=== PATIENT | female | born 1950 | race Caucasian/White ===

== ENCOUNTER 2020-05-04 13:23 | Outpatient (CLI) | payer MEDICARE, OTHER, SELFPAY ==
[2020-05-04 14:09] LABS: Amphetamine Screen Urine Negative (Negative); Barbiturate Screen Urine Negative (Negative); Benzodiazepines Screen Urine Negative (Negative); Cannabinoid Screen Urine Negative (Negative); Cocaine Screen Urine Negative (Negative); Methadone Screen Urine Negative (Negative); Opiate Screen Urine Negative (Negative); Phencyclidine Screen Urine Negative (Negative)
== END 2020-05-04 13:24 | disposition home or self-care (01) ==
PROVIDERS: PCP Internal Medicine; Visit Provider Clinical Nurse Specialist
DX: Z79.891 Long term (current) use of opiate analgesic (principal)
CPT/HCPCS: 80307

== ENCOUNTER 2020-08-04 10:07 | Outpatient (CLI) | payer MEDICARE, OTHER, SELFPAY ==
[2020-08-04 10:45] LABS: Basophils Absolute Auto 0.1 K/mm3 (0.0-0.1); Basophils Percent Auto 0.8 % (0.2-1.2); Eosinophils Percent Auto 0.6 % (0-4.4); Hemoglobin 13.2 g/dL (12.0-15.0); Immature Granulocyte Absolute 0.01 K/mm3 (0.00-0.031); Immature Granulocyte Percent A 0.2 % (0-0.5); Lymphocytes Absolute Auto 1.44 K/mm3 (0.9-3.2); Lymphocytes Percent Auto 23.2 % (18.3-44.2); Mean Corpuscular Hemoglobin 32.2 pg (26-34); Mean Corpuscular Volume 97.6 fl (80-100); Mean Platelet Volume 8.9 fl (7.4-10.4); Monocytes Absolute Auto 0.5 K/mm3 (0.1-0.6); Monocytes Percent Auto 8.7 % (2.6-8.5); Neutrophils Absolute Auto 4.1 K/mm3 (1.3-6.7); Neutrophils Percent Auto 66.5 % (45.5-73.1); Platelet Count Result 217 k/mm3 (150-375); Red Cell Distribution Width 12.8 % (11.5-14.5); White Blood Count 6.2 K/mm3 (4.5-10.0)
[2020-08-04 11:03] LABS: Alanine Aminotransferase 12 U/L (4-35); Albumin Level 3.6 g/dL (3.5-5.1); Alkaline Phosphatase 74 U/L (38-126); Anion Gap 5 mmol/L (8-16); Aspartate Amino Transferase 28 U/L (14-36); Bilirubin,Total 0.6 mg/dL (0.2-1.3); Blood Urea Nitrogen 13 mg/dL (7-17); Calcium 8.7 mg/dL (8.4-10.2); Carbon Dioxide 27 mmol/L (22-30); Chloride 106 mmol/L (98-107); Cholesterol 178 mg/dL (0-200); Estimated Glomerular Filt Rate > 60; Glucose 88 mg/dL (65-105); HDL Direct 59 mg/dL; Potassium 4.1 mmol/L (3.4-5.0); Sodium 138 mmol/L (137-145); Triglycerides 96 mg/dL (<150)
[2020-08-04 11:15] LABS: LDL Cholesterol Direct 97 mg/dL
[2020-08-04 11:47] LABS: Vitamin D 25 Hydroxy 30.1 ng/mL
== END 2020-08-04 10:08 | disposition home or self-care (01) ==
LOC: ANHLAB 10:09
PROVIDERS: PCP Internal Medicine; Visit Provider Clinical Nurse Specialist
DX: Z13.228 Encounter for screening for other metabolic disorders (principal); E55.9 Vitamin D deficiency, unspecified; E05.90 Thyrotoxicosis, unspecified without thyrotoxic crisis or storm
CPT/HCPCS: 36415; 80053; 80061; 82306; 85025

== ENCOUNTER → 2020-10-06 14:25 | Outpatient (CLI) | payer MEDICARE, OTHER, SELFPAY ==
--- NOTE | ~2020-10-06 | MM_ITS ---
EXAMINATION: MM screening jihan BI w melinda HISTORY: Screening mammogram TECHNIQUE: Craniocaudal and mediolateral oblique 3-D tomosynthesis images were obtained and synthetic 2-D images were generated. CAD analysis was submitted and interpreted. COMPARISON: 09/07/2019, 08/03/2018, 07/31/2017 bilateral digital screening mammogram examinations BREAST PARENCHYMAL COMPOSITION: There are scattered areas of fibroglandular density. FINDINGS: There is no evidence of suspicious mass, calcification, or architectural distortion to sugg est malignancy in either breast. There has been no suspicious interval change. IMPRESSION: 1. No mammographic evidence of malignancy. 2. Recommend routine screening mammography in one year. BI-RADS Category 1: Negative Reviewed, dictated and finalized at location A. E HAND
== END ==
PROVIDERS: Visit Provider Obstetrics & Gynecology
DX: Z12.31 Encounter for screening mammogram for malignant neoplasm of breast (principal)
CPT/HCPCS: 77063; 77067

== ENCOUNTER → 2020-10-06 14:30 | Outpatient (CLI) | payer MEDICARE, OTHER, SELFPAY ==
--- NOTE | ~2020-10-06 | DEXA_ITS ---
Bone Density Report Name: Mercedes Mosley Age: 69 Sex: Female Ethnicity: White Date of : 1950 Indication: postmenopausal; screening for osteoporosis; hysterectomy; Referring Provider: Isabelle Jones Study: Bone densitometry was performed. Exam Date: October 06, 2020 Accession number: [id number] Bone Density: Region BMD T-score Z-score Classification AP Spine (L1-L4) 0.787 -2.4 -0.4 Osteopenia Femoral Neck (Left) 0.619 -2.1 -0.4 Osteopenia Total Hip (Left) 0.744 -1.6 -0.2 Osteopenia Femoral Neck (Right) 0.552 -2.7 -1.0 Osteoporosis Total Hip (Right) 0.672 -2.2 -0.8 Osteopenia Total Hip Mean 0.708 -1.9 -0.5 Osteopenia World Health Organization criteria for BMD impression classify patients as: Normal (T-score at or above -1.0), Osteopenia (T-score between -1.0 and -2.5), or Osteoporosis (T-score at or below -2.5). 10-year Fracture Risk: FRAX not reported because: Some T-score for Spine Total or Hip Total or Femoral Neck at or below -2.5 Clinical Information Provided by Patient: Has used the following medications: Vitamin D Has the following medical conditions: Hysterectomy Patient maximum height was 64 Menopause Age: 51 No regular weight bearing exercise Drinks caffeinated beverages Onset of menses at age 16 Number of children 3 Impression: The patient has osteoporosis, based on the Right Femoral Neck T-score. Discussion: INCREASED RISK OF FRACTURE. BONE DENSITY IS UNDESIRABLY LOW AT ONE OR MORE SKELETAL SITES, CONSISTENT WITH POSTMENOPAUSAL OSTEOPOROSIS. This patient's lowest T-score meets the World Health Organization's (WHO) criteria for osteoporosis at one or more sites (T-score -2.5 or below). In untreated patients, the risk of osteoporotic fracture increases approximately two-fold for each 1.0 SD decrease in T-score. Low bone density is not the only risk factor for fracture; also consider factors such as patient's age, frailty or poor health, risk of falling, risk of injury, previous osteoporotic fracture, family history of osteoporosis, cigarette smoking, low body weight, etc. Not everyone with low bone mineral density has osteoporosis; osteomalacia and other metabolic bone disorders should also be considered. Patients who have osteoporosis should be evaluated for specific diseases and conditions (secondary causes) that may cause or contribute to bone loss. The [place] [employer]ocrinologists (AACE) and National Osteoporosis Foundation (NOF) recommend pharmacologic intervention for all postmenopausal women whose T-score is in this range. The patient should follow a healthful lifestyle (good nutrition with adequate calcium and vitamin D, and appropriate weight-bearing exercise). Follow-Up: Consider a repeat BMD and Vertebral Fracture Assessment (VFA) exam in 2 years or soon
== END ==
PROVIDERS: PCP Internal Medicine; Visit Provider Clinical Nurse Specialist
DX: Z78.0 Asymptomatic menopausal state (principal); M81.0 Age-related osteoporosis without current pathological fracture; M85.88 Other specified disorders of bone density and structure, other site; M85.852 Other specified disorders of bone density and structure, left thigh; M85.851 Other specified disorders of bone density and structure, right thigh
CPT/HCPCS: 77080

== ENCOUNTER → 2021-02-05 09:23 | Outpatient (CLI) | payer MEDICARE, OTHER, SELFPAY ==
--- NOTE | ~2021-02-05 | XR_ITS ---
EXAMINATION: XR chest 2V 02/05/2021 09:49 INDICATION: Cough PROCEDURE: Two-view chest COMPARISON: 12/20/2011 FINDINGS: The lungs are clear. The cardiomediastinal silhouette is within normal limits. There are no pleural effusions. There is no pneumothorax suspected. IMPRESSION: 1: NO ACUTE CARDIOPULMONARY DISEASE. Reviewed, dictated and finalized at location A.
== END ==
PROVIDERS: PCP Clinical Nurse Specialist; Visit Provider Clinical Nurse Specialist
DX: R05 Cough (principal)
CPT/HCPCS: 71046

== ENCOUNTER 2021-06-17 06:28 | Emergency (ER) | payer MEDICARE, OTHER, SELFPAY ==
--- NOTE | ~2021-06-17 | US_ITS ---
EXAMINATION: US venous doppler UE RT DATE: 06/17/2021 07:37 INDICATION: Right arm pain TECHNIQUE: Grayscale ultrasound images without and with compression and Doppler ultrasound images of the right upper extremity veins were obtained. COMPARISON: None. FINDINGS: The right internal jugular vein, subclavian vein, axillary vein, brachial veins, basilic vein, cephal ic vein, radial vein, and ulnar vein are patent. There is focal area of decreased echogenicity in the area of clinical concern which appears to involve one of the forearm muscles. No definite focal mass is identified. IMPRESSION: 1. No evidence of deep venous thrombosis. 2. Increased echogenicity appearing to involve a muscle of the forearm without definite mass or absce ss identified. Correlate for history of trauma. Consider follow-up with nonemergent CT or MRI with co ntrast. Reviewed, dictated and finalized at location A. IMPRESSION: 1. No evidence of deep venous thrombosis. 2. Increased echogenicity appearing to involve a muscle of the forearm without definite mass or abscess identified. Correlate for history of trauma. Consider follow-up with nonemergent CT or MRI with contrast.
--- NOTE | ~2021-06-17 | XR_ITS ---
EXAMINATION: XR forearm RT 2V INDICATION: Right forearm swelling and pain TECHNIQUE: Two views of the right forearm are obtained. COMPARISON: None available FINDINGS: There is dorsal soft tissue swelling of the mid forearm. There is no fracture, dislocation, or subluxation. Bone alignment at the wrist and elbow is normal. IMPRESSION: 1. Dorsal soft tissue swelling of the mid forearm. Reviewed, dictated and finalized at location A.
[2021-06-17 06:31] VITALS: BP 144/82; PULSE 78; RESP 20; TEMP 36.7; O2SAT 98
--- NOTE | 2021-06-17 06:39 | PC.NURSE ---
pt c/o Right forearm pain with US scheduled in 2 days. reports pain began without known injury approx. 1.5 weeks ago. no redness. no warmth. non-pitting, loose edema noted to right forearm. pt reports it started as a small area but swelling has spread since onset. +2 Right radial pulse without deformity. Full ROM. no s/s of distress. a/o x 4. Last took ibuprofen 800 mg yesterday at 2100.
--- NOTE | 2021-06-17 07:19 | PC.NURSE ---
Pt went to ultrasound and xray of right forearm
--- NOTE | 2021-06-17 07:28 | ED.EXTPRO ---
HPI - Extremity Problem General Chief complaint: Extremity Problem,Nontraumatic Stated complaint: Right arm lump Time Seen by Provider: 06/17/21 06:59 Source: patient and RN notes reviewed Mode of arrival: ambulatory Limitations: no limitations History of Present Illness HPI Narrative: This is a 70 year old female who presents for evaluation of right forearm swelling . This swelling has been present for 2 weeks. She has intermittent worsening pain. She reports pain makes difficulty to move hands but no numbness or tingling. She denies fever, chills. She states the lump to her right forearm feels warm. Last night she took ibuprofen for her pain and she denies need for pain medication now. She denies trauma to arm. She has been scheduled for an ultrasound of her arm on Friday but she did not want to wait for her appointment. Related Data Allergies Allergy/AdvReac Type Severity Reaction Status Date / Time No Known Allergies Allergy Verified 06/17/21 06:36 Review of Systems Review of Systems: All systems reviewed & are unremarkable except as noted in HPI and below PMFSH Past Medical History Medical History Insomnia Neck pain Palpitations Short heel cord 1989 Tonsillectomy planned 1978 Vitamin deficiency Surgical History Surgical History H/O arthroscopy of right knee 2013 H/O right knee surgery 1999 H/O: hysterectomy 2001 History of appendectomy 2006 Family History Family History Father Family history of lung cancer Mother Hypertension Social History Social History (Updated 06/11/21 @ 14:39 by Esha Chavez) Social History: caffeine-coffee/soda 1 daily Smoking status: Never smoker Alcohol intake: current Drinks per week: 1 Alcohol use details: occasionally Substance use: never Exam Const: General: no acute distress and alert Orientation/consciousness: patient oriented x3 Eyes: EOM: EOMs intact bilaterally Resp: Effort & Inspection: normal respiratory effort Skin: General skin exam: normal color Rashes: no rashes Other: no erythema, Neuro: General: patient oriented x3, moves all extremities and CN's II-XI intact bilaterally Extrem: Other: right dorsal proximal forearm with soft swelling, no erythema, mild tenderness, strong radial pulse, Psych: Mental Status: mental status grossly normal Affect: normal affect Course Reevaluation(s) Reevaluation #1: Patient has no fever, no wbc, This does not appear to be abscess. Arm is soft. No sign of compartment syndrome. I discussed discharge plan to follow up with PCP for outpatient MRI of her arm. Date: 06/17/21 Time: 08:32 Consultations Consultation #1: I spoke with DR. rivera about US and xray. No fever and leukocytosis. He agrees MRI would be best study for evaluation and his office will get that ordered tomorrow. Date: 06/17/21 Time: 08:31 Vital Signs Vital signs: Vital Signs Temperature 98.1 F 06/17/21 06:31 Pulse Rate 78 06/17/21 06:31 Respiratory Rate 20 06/17/21 06:31 Blood Pressure 144/82 H 06/17/21 06:31 Pulse Oximetry 98 06/17/21 06:31 Temperature 98.9 F 06/17/21 07:37 Pulse Rate 70 06/17/21 08:46 Respiratory Rate 18 06/17/21 08:46 Blood Pressure 142/76 H 06/17/21 08:46 Pulse Oximetry 100 06/17/21 08:46 MDM - Extremity (Nontraumatic) Lab Data Attestation: I reviewed the patient's lab results. Result diagrams: 06/17/21 07:54 06/17/21 07:54 Labs: Lab Results 06/17/21 06/17/21 Range/Units 07:54 07:54 WBC 7.8 (4.5-10.0) K/mm3 RBC 4.02 L (4.2-5.4) M/mm3 Hgb 12.8 (12.0-15.0) g/dL Hct 38.6 (37.0-47.0) % MCV 96.0 (80-100) fl MCH 31.8 (26-34) pg MCHC 33.2 (32-36) g/dl RDW 13.0 (11.5-14.5) % Plt Count 192 (150-3
[2021-06-17 07:37] VITALS: BP 138/80; PULSE 73; RESP 16; TEMP 37.2; O2SAT 100
--- NOTE | 2021-06-17 07:41 | PC.NURSE ---
Pt A&Ox4, pt has full range of motion, forearm swollen, pt states pain when she moves it, skin warm,dry, intact
[2021-06-17 08:20] LABS: Basophils Absolute Auto 0.1 K/mm3 (0.0-0.1); Basophils Percent Auto 0.6 % (0.2-1.2); Eosinophils Absolute Auto 0.1 K/mm3 (0-0.3); Hematocrit 38.6 % (37.0-47.0); Hemoglobin 12.8 g/dL (12.0-15.0); Immature Granulocyte Absolute 0.02 K/mm3 (0.00-0.031); Immature Granulocyte Percent A 0.3 % (0-0.5); Lymphocytes Absolute Auto 0.96 K/mm3 (0.9-3.2); Lymphocytes Percent Auto 12.4 % (18.3-44.2); Mean Corpuscular HGB Conc 33.2 g/dl (32-36); Mean Corpuscular Hemoglobin 31.8 pg (26-34); Mean Platelet Volume 8.7 fl (7.4-10.4); Monocytes Absolute Auto 0.9 K/mm3 (0.1-0.6); Neutrophils Absolute Auto 5.8 K/mm3 (1.3-6.7); Neutrophils Percent Auto 74.7 % (45.5-73.1); Platelet Count Result 192 k/mm3 (150-375); Red Blood Count 4.02 M/mm3 (4.2-5.4); White Blood Count 7.8 K/mm3 (4.5-10.0)
[2021-06-17 08:36] LABS: Alanine Aminotransferase 16 U/L (4-35); Albumin Level 3.4 g/dL (3.5-5.1); Alkaline Phosphatase 77 U/L (38-126); Anion Gap 5 mmol/L (8-16); Aspartate Amino Transferase 33 U/L (14-36); Bilirubin,Total 0.3 mg/dL (0.2-1.3); Blood Urea Nitrogen 20 mg/dL (7-17); Calcium 8.5 mg/dL (8.4-10.2); Carbon Dioxide 28 mmol/L (22-30); Chloride 108 mmol/L (98-107); Estimated CRCL calculation 57 ml/min; Estimated Glomerular Filt Rate > 60; Glucose 98 mg/dL (65-110); Sodium 141 mmol/L (137-145)
[2021-06-17 08:46] VITALS: BP 142/76; PULSE 70; RESP 18; O2SAT 100
[2021-06-17 08:49] LABS: CRP 1.2 mg/dL (<1.0)
[2021-06-17] MEDS: MORPHINE SULFATE (*CRX) 2 MG/ML INJ (08:50)
== END 2021-06-17 08:48 | disposition home or self-care (01) ==
PROVIDERS: Emergency Provider General Practice; PCP Internal Medicine
DX: M79.89 Other specified soft tissue disorders (principal); E56.9 Vitamin deficiency, unspecified
CPT/HCPCS: 36415; 73090; 80053; 85025; 86140; 93971; 96374; 99284; J2270

== ENCOUNTER 2021-07-30 00:57 | Day surgery (SDC) | payer MEDICARE, OTHER, SELFPAY ==
[2021-07-11 14:14] VITALS: BMI 22.3
[2021-07-30 09:59] VITALS: BP 93/74; PULSE 96; RESP 16; TEMP 36.1; O2SAT 100; BMI 21.1
[2021-07-30] MEDS: LACTATED RINGERS 1,000 ML 150 ML IV CONT (10:08)
--- NOTE | 2021-07-30 10:09 | WPDANESEPPF ---
Anes - Initial Pre Proc Eval Procedure: Operation Date: 07/30/21 10:30 Proposed Procedures p Screening Colonoscopy - Dragan Li MD Date/Time: 07/30/21 10:09 Surgeon: Dragan Li MD Pre Op Diagnosis: hx of colon polyps Patient Data Age: 70 Gender: F Height: 1.63 m Weight: 55.9 kg Last Vital Signs Temp 97.0 F L 07/30/21 09:59 Pulse 96 07/30/21 09:59 Resp 16 07/30/21 09:59 BP 93/74 L 07/30/21 09:59 Pulse Ox 100 07/30/21 09:59 Allergies Allergy/AdvReac Type Severity Reaction Status Date / Time No Known Allergies Allergy Verified 07/30/21 09:58 Home Medications Medication Instructions Recorded Confirmed Type alendronate 70 mg tablet 70 mg PO WEEKLY #12 tablet 01/23/21 07/30/21 Rx zolpidem 10 mg tablet 10 mg PO .HS PRN #30 tablet 06/04/21 07/30/21 Rx ibuprofen 600 mg PO TID PRN #14 tablet 06/17/21 07/30/21 Rx Patient hx anesthesia problems: none Family hx anesthesia problems: none Results Review: All pre-operative results and documents have been reviewed as part of the pre-operative evaluation. [facility] Past Medical History Medical History Insomnia Neck pain Palpitations Short heel cord 1989 Tonsillectomy planned 1978 Vitamin deficiency Surgical History Surgical History H/O arthroscopy of right knee 2013 H/O right knee surgery 1999 H/O: hysterectomy 2001 History of appendectomy 2006 Family History Family History Father Family history of lung cancer Mother Hypertension Social History Social History (Updated 06/11/21 @ 14:39 by Esha Chavez) Social History: caffeine-coffee/soda 1 daily Smoking status: Never smoker Alcohol intake: current Drinks per week: 2 Alcohol use details: occasionally Substance use: never Substance use type: does not use Living arrangements: with family Spiritual care concerns: No Anes - Eval Final PreProcedure Day of Procedure 07/30/21 10:09 Patient weight: normal Heart: regular rate and rhythm Lungs: clear to auscultation Airway: Mallampati scale class II Neurological: alert and oriented Last oral intake: >/= 8 hours ASA classification: II Emergent: no Anesthetic plan: proceed Anesthesia type and monitoring: general GIVS and standard monitoring Results Review: All pre-operative results and documents have been reviewed as part of the pre-operative evaluation. Informed Consent: The patient's anesthetic plan and its attendant risks and benefits were discussed with the patient/family/POA. Questions were solicited and answers provided to the satisfaction of the patient/family/POA.
--- NOTE | 2021-07-30 10:16 | WPDGICN ---
Assessment and Plan Assessment and plan (1) History of colon polyps: Code(s): Z86.010 - Personal history of colonic polyps Status: Acute Assessment and Plan: Patient has a prior history of colon polyps for this reason surveillance colonoscopy advised this time. Follow-up may need to be considered at 5 year intervals in the future. GI Consult Note Consult date/time: 07/30/21 10:16 HPI: Mercedes Mosley is a 70 year old female Presents for screening colonoscopy. Patient has a prior history of colon polyps. Most recent colonoscopy in [address] Brown. Patient reports that her current weight appetite bowel movements are normal. She denies abdominal pain. She has at no bleeding. Family history noncontributory. Review of Systems Review of Systems: All systems reviewed & are unremarkable except as noted in HPI and below PMFSH Past Medical History Medical History Insomnia Neck pain Palpitations Short heel cord 1989 Tonsillectomy planned 1978 Vitamin deficiency Surgical History Surgical History H/O arthroscopy of right knee 2013 H/O right knee surgery 1999 H/O: hysterectomy 2002 History of appendectomy 2006 Family History Family History Father Family history of lung cancer Mother Hypertension Social History Social History (Updated 06/11/21 @ 14:39 by Esha Chavez) Social History: caffeine-coffee/soda 1 daily Smoking status: Never smoker Alcohol intake: current Drinks per week: 2 Alcohol use details: occasionally Substance use: never Substance use type: does not use Living arrangements: with family Spiritual care concerns: No Meds Home Medications and Allergies Home Medications Medication Instructions Recorded Confirmed Type alendronate 70 mg tablet 70 mg PO WEEKLY #12 tablet 01/23/21 07/30/21 Rx zolpidem 10 mg tablet 10 mg PO .HS PRN #30 tablet 06/04/21 07/30/21 Rx ibuprofen 600 mg PO TID PRN #14 tablet 06/17/21 07/30/21 Rx Allergies Allergy/AdvReac Type Severity Reaction Status Date / Time No Known Allergies Allergy Verified 07/30/21 09:58 Vital Signs Vital Signs - 24 hr 07/30/21 09:59 Temperature 97.0 F L Pulse Rate 96 Respiratory Rate 16 Blood Pressure 93/74 L Pulse Oximetry 100 Exam Narrative: Physical exam reveals patient to be alert. Vital signs stable. HEENT exam unremarkable. Patient is anicteric. Lungs are clear to auscultation and percussion. Heart is without murmur or extra sounds. Abdominal exam bowel sounds present soft nontender with no organomegaly. Digital external rectal exam is normal.
[2021-07-30 10:49] VITALS: BP 99/69; PULSE 79; RESP 25; O2SAT 100
[2021-07-30 10:59] VITALS: BP 121/73; PULSE 69; RESP 22; O2SAT 100
[2021-07-30 11:20] VITALS: BP 134/72; PULSE 64; RESP 12; O2SAT 100
== END 2021-07-30 11:37 | disposition home or self-care (01) ==
PROVIDERS: PCP Internal Medicine; Visit Provider Internal Medicine Gastroenterology
PROC: 0DJD8ZZ Inspection of Lower Intestinal Tract, Via Natural or Artificial Opening Endoscopic (ICD-10-PCS; CPT 45378; principal; 2021-07-30 10:30)
DX: Z12.11 Encounter for screening for malignant neoplasm of colon (principal); K57.30 Diverticulosis of large intestine without perforation or abscess without bleeding; Z86.010 Personal history of colon polyps
CPT/HCPCS: G0105; J2704; J7120

== ENCOUNTER → 2021-12-31 08:42 | Outpatient (CLI) | payer MEDICARE, OTHER, SELFPAY ==
[2021-12-31 13:08] LABS: SARS-CoV-2 RNA PCR Negative
== END ==
PROVIDERS: PCP Internal Medicine; Visit Provider Clinical Nurse Specialist
DX: J32.9 Chronic sinusitis, unspecified (principal); Z20.822 Contact with and (suspected) exposure to COVID-19
CPT/HCPCS: C9803; U0003; U0005

== ENCOUNTER → 2022-01-04 13:44 | Outpatient (CLI) | payer MEDICARE, OTHER, SELFPAY ==
--- NOTE | ~2022-01-04 | MM_ITS ---
EXAMINATION: MM screening jihan BI w melinda HISTORY: Screening TECHNIQUE: Craniocaudal and mediolateral oblique 3-D tomosynthesis images were obtained and synthetic 2-D images were generated. CAD analysis was submitted and interpreted. COMPARISON: Comparison to multiple prior studies sequentially, with oldest reviewed study dated 03/2015. BREAST PARENCHYMAL COMPOSITION: Breast composed of scattered areas of fibroglandular density FINDINGS: There is a subareolar mass in the right breast which is partially obscured by fibroglandula r tissue. There are no suspicious masses, calcifications or architectural distortion in the left [address] to suggest malignancy. IMPRESSION: 1. Subareolar mass of the right breast. 2. Additional mammographic views and possible breast ultrasound are recommended. BI-RADS Category 0: Incomplete: Needs additional imaging evaluation. Reviewed, dictated and finalized at location A. IMPRESSION: 1. Subareolar mass of the right breast. 2. Additional mammographic views and possible breast ultrasound are recommended . BI-RADS Category 0: Incomplete: Needs additional imaging evaluation.
== END ==
PROVIDERS: PCP Obstetrics & Gynecology; Visit Provider Obstetrics & Gynecology
DX: Z12.31 Encounter for screening mammogram for malignant neoplasm of breast (principal); R92.8 Other abnormal and inconclusive findings on diagnostic imaging of breast
CPT/HCPCS: 77063; 77067

== ENCOUNTER → 2022-02-11 08:49 | Outpatient (CLI) | payer MEDICARE, OTHER, SELFPAY ==
--- NOTE | ~2022-02-11 | MMUS_ITS ---
EXAMINATION: MM diagnostic jihan RT w melinda, US breast RT limited HISTORY: Subareolar mass of right breast reported on 01/04/2022 screening mammogram TECHNIQUE: Additional 3-D tomosynthesis images of the right breast were performed and synthetic 2-D i mages were generated. CAD analysis was submitted and interpreted. High resolution subareolar right br east ultrasound was performed. COMPARISON: 01/04/2022 bilateral screening mammogram FINDINGS: MAMMOGRAPHIC FINDINGS: No suspicious mass or architectural distortion, malignant calcification, skin thickening or retractio n is evident. ULTRASOUND: No suspicious mass, shadowing or other significant sonographic abnormality is detected in the subareo lar area of the right breast IMPRESSION: 1. No mammographic evidence of malignancy 2. Routine annual mammographic screening is recommended BI-RADS Category 1: Negative Reviewed, dictated and finalized at location A. IMPRESSION: 1. No mammographic evidence of malignancy 2. Routine annual mammographic screening is recommended BI-RADS Category 1: Negative
== END ==
PROVIDERS: PCP Family Medicine; Visit Provider Obstetrics & Gynecology
DX: R92.8 Other abnormal and inconclusive findings on diagnostic imaging of breast (principal)
CPT/HCPCS: 76642; 77061; 77065; G0279

== ENCOUNTER → 2023-01-10 07:15 | Outpatient (CLI) | payer MEDICARE, OTHER, SELFPAY ==
--- NOTE | ~2023-01-10 | MM_ITS ---
EXAMINATION: MM screening jihan BI w melinda HISTORY: Screening mammogram TECHNIQUE: Craniocaudal and mediolateral oblique 3-D tomosynthesis images were obtained and synthetic 2-D images were generated. CAD analysis was submitted and interpreted. COMPARISON: 01/04/2022, 10/06/2020, 09/07/2019 BREAST PARENCHYMAL COMPOSITION:There are scattered areas of fibroglandular density. FINDINGS: No suspicious mass, calcification, or architectural distortion are identified in either matthew ast to suggest malignancy. There has been no suspicious interval change. IMPRESSION: No mammographic evidence of malignancy. Recommend routine screening mammography in one year. BI-RADS Category 1: Negative Reviewed, dictated and finalized at location .
== END ==
PROVIDERS: PCP Family Medicine; Visit Provider Obstetrics & Gynecology
DX: Z12.31 Encounter for screening mammogram for malignant neoplasm of breast (principal)
CPT/HCPCS: 77063; 77067

== ENCOUNTER 2023-07-11 08:21 | Emergency (ER) | payer MEDICARE, OTHER, SELFPAY ==
--- NOTE | ~2023-07-11 | XR_ITS ---
[id number] DATE: 07/11/2023 08:57 INDICATION: Injury 3 days ago, left rib pain. TECHNIQUE: PA chest. 3 views of the left ribs. COMPARISON: None FINDINGS: Mild old healed posterolateral left sixth rib fracture deformity. No recent left rib fractu re is detected. Normal heart size. No hilar or mediastinal enlargement. There is a new focal density overlying the outer mid to upper right lung, right upper lobe. Right upp er lobe mass is not excluded. CT thorax is recommended. The lungs otherwise are clear of infiltrate or consolidation. No pleural effusion or pulmonary vascul ar congestion or pneumothorax. Mild upper thoracic dextroscoliosis and lower thoracic levoscoliosis and lumbar dextroscoliosis. IMPRESSION: Old healed posterolateral left sixth rib fracture No recent left rib fracture is detected Ill-defined asymmetric density in the lateral mid to upper right lung field; CT thorax is recommended to evaluate for possible lung mass. Reviewed, dictated and finalized at Location A. Reviewed, dictated and finalized at location B. [employer]
[2023-07-11 08:35] VITALS: BP 134/92; PULSE 83; RESP 16; TEMP 36.4; O2SAT 100
--- NOTE | 2023-07-11 09:35 | ED.BACK ---
HPI - Back Pain/Injury General Chief Complaint: Back Pain/Injury Stated Complaint: Rib pain Time Seen by Provider: 07/11/23 08:41 Source: patient and RN notes reviewed Mode of arrival: ambulatory Limitations: no limitations History of Present Illness HPI Narrative: Patient presents today complaining of 3 day history of left lateral rib pain. Patient bent over a box the [employer] and felt sharp pain in her ribs. She currently rates her pain 0/10 at rest, which increases to 10/10 with movement or deep breath. She has been taking naproxen without relief. Related Data Home Medications Medication Instructions Recorded Confirmed alendronate 70 mg tablet 70 mg PO DAILY 07/11/23 07/11/23 zolpidem 10 mg tablet 10 mg PO HS 07/11/23 07/11/23 Allergies Allergy/AdvReac Type Severity Reaction Status Date / Time No Known Allergies Allergy Verified 07/11/23 08:31 Review of Systems Review of Systems: CONSTITUTIONAL: Denies body aches, fever, chills, or sweats. EYES: Denies visual changes, redness, or discharge. ENT: Denies rhinorrhea, congestion, sore throat, or otalgia. CARDIOVASCULAR: Denies chest pain, palpitations, or edema. RESPIRATORY: Denies cough or dyspnea. GASTROINTESTINAL: Denies abdominal pain, nausea, vomiting, or diarrhea. GENITOURINARY: Denies dysuria or hematuria. SKIN: Denies rash, itching, or wounds. MUSCULOSKELETAL: + left rib pain NEUROLOGIC: Denies headache, numbness, tingling, or weakness. PSYCH: Denies depression or anxiety. [facility] Past Medical History Medical History Insomnia Neck pain Palpitations Short heel cord 1989 Tonsillectomy planned 1978 Vitamin deficiency Surgical History Surgical History H/O arthroscopy of right knee 2013 H/O right knee surgery 1999 H/O: hysterectomy 2001 History of appendectomy 2006 Family History Family History Father Family history of lung cancer Mother Hypertension Social History Social History Social History: caffeine-coffee/soda 1 daily Smoking status: Never smoker Alcohol intake: current Drinks per week: 2 Alcohol use details: occasionally Substance use: never Substance use type: does not use Living arrangements: with family Spiritual care concerns: No Comments At time of signature, I have reviewed and agree with nursing past medical, surgical, social and family history unless otherwise noted. Please see nursing chart for further information. There is no relevant family history pertinent to the presenting complaint Exam Narrative: GENERAL: Well-appearing, well-nourished, and in no acute distress. HEAD: Normocephalic, atraumatic. EYES: EOMI. No redness or drainage. Conjunctivae normal. ENT: Mucous membranes pink and moist. NECK: Normal AROM. CHEST: No respiratory distress. Clear to auscultation. Tenderness to the left lower lateral ribs. No crepitus, ecchymosis, or edema noted. HEART: Regular rate and rhythm. No murmur appreciated. Normal peripheral pulses. ABDOMEN: Soft, nontender, nondistended, normal active bowel sounds. EXTREMITIES: Normal range of motion. No edema. SKIN: Warm, dry, no rash. Capillary refill normal. Normal skin turgor. NEURO: No focal deficits. Alert and oriented x3. Gait steady. PSYCH: Normal affect. No signs of depression or anxiety. Course Course Level of Care: Express Care Visit Vital Signs Vital signs: Vital Signs Temperature 97.6 F 07/11/23 08:35 Pulse Rate 83 07/11/23 08:35 Respiratory Rate 16 07/11/23 08:35 Blood Pressure 134/92 H 07/11/23 08:35 Pulse Oximetry 100 07/11/23 08:35 Temperature 97.6 F 07/11/23 08:35 Pulse Rate 83 07/11/23 08:35 Respiratory Rate 16 07/11/23 08:35 Blood Pressu
== END 2023-07-11 09:57 | disposition home or self-care (01) ==
PROVIDERS: Emergency Provider Nurse Practitioner; PCP Family Medicine
DX: S20.212A Contusion of left front wall of thorax, initial encounter (principal); X50.0XXA Overexertion from strenuous movement or load, initial encounter
CPT/HCPCS: 71101; 99213; G0463

== ENCOUNTER 2024-02-18 10:30 | Outpatient (CLI) | payer MEDICARE, OTHER, SELFPAY ==
--- NOTE | ~2024-02-18 | MM_ITS ---
EXAMINATION: MM screening jihan BI w melinda HISTORY: Screening mammogram TECHNIQUE: Craniocaudal and mediolateral oblique 3-D tomosynthesis images were obtained and synthetic 2-D images were generated. CAD analysis was submitted and interpreted. COMPARISON: 01/10/2023, 01/04/2022 BREAST PARENCHYMAL COMPOSITION:Not Dense. There are scattered areas of fibroglandular density. FINDINGS: No suspicious mass, calcification, or architectural distortion are identified in either matthew ast to suggest malignancy. There has been no suspicious interval change. IMPRESSION: No mammographic evidence of malignancy. Recommend routine screening mammography in one year. BI-RADS Category 1: Negative Reviewed, dictated and finalized at location .
== END 2024-02-18 10:31 ==
LOC: MICIMG 10:32
PROVIDERS: PCP Family Medicine; Visit Provider Obstetrics & Gynecology
DX: Z12.31 Encounter for screening mammogram for malignant neoplasm of breast (principal)
CPT/HCPCS: 77063; 77067